=== PATIENT | female | born 1965 | race Caucasian/White ===

== ENCOUNTER 2017-01-04 16:15 | Outpatient (RCR) | payer BC, MEDICARE ==
[~2017-01-04 16:15] MED LIST: ALPRAZOLAM0.5 MG PO; ASCORBIC ACID500 MG ORAL; ATORVASTATIN CA80 MG ORAL; CALCIUM 500 +1 EAC3 PO; CITALOPRAM HBR40 M1 ORAL; COENZYME Q10100 MG PO; COMBIVENT RESPIM4 GM IH; CULTURELLE1 EACH ORAL; CYCLOBENZAPRINE10 MG ORAL; FOLIC ACID1 MG ORAL; FONDAPARIN10 MG/0.8 SQ; FOSAMAX70 MG ORAL; FUROSEMIDE40 MG ORAL; GABAPENTIN600 MG ORAL; IMITREX25 MG PO; KEFLEX500 MG ORAL; METOLAZONE2.5 MG PO; METOPROLOL SUC100 MG ORAL; NICODERM CQ1 EAC1 TD; OMEPRAZOLE40 M1 ORAL; OXYCODONE IR15 MG ORAL; PILOCARPINE HCL5 M1 PO; PLAQUENIL200 MG ORAL; POTASSIUM CHLO10 MEQ ORAL; PREDNISOLO15 MG/5 M1 ORAL; THERAGRAN-M PR1 EAC1 PO; TREXALL5 MG PO; VITAMIN E1000 UNI1 PO
== END 2017-01-11 | disposition home or self-care (01) ==
LOC: PTY 16:15
DX: S52.591A Other fractures of lower end of right radius, initial encounter for closed fracture (principal); X58.XXXA Exposure to other specified factors, initial encounter; Y93.9 Activity, unspecified; Y92.9 Unspecified place or not applicable